=== PATIENT | male | born 1955 | race Caucasian/White ===

== ENCOUNTER 2017-11-23 17:47 | Emergency (ER) | payer BC ==
[2017-11-23 19:24] LABS: BASOPHILS % (AUTO) 0.3 %; EOSINOPHILS # (AUTO) 0.1 10^3/uL (0.0-0.7); EOSINOPHILS % (AUTO) 0.6 %; HGB - HEMOGLOBIN 12.5 g/dL (14.0-18.0); LYMPHOCYTES # (AUTO) 1.2 10^3/uL (1.5-3.5); LYMPHOCYTES % (AUTO) 12.1 %; MEAN CORPUSCULAR HEMOGLOBIN 31.1 pg (27.0-31.0); MEAN CORPUSCULAR HGB CONC 33.6 g/dL (32.0-36.0); MEAN CORPUSCULAR VOLUME 92.3 fL (80.0-94.0); MEAN PLATELET VOLUME 7.2 fL (7.4-11.4); MONOCYTES % (AUTO) 9.8 %; NEUTROPHILS # (AUTO) 7.5 10^3/uL (1.5-6.6); NEUTROPHILS % (AUTO) 77.2 %; PLT - PLATELET COUNT 249 10^3/uL (130-450); RED BLOOD COUNT 4.04 10^6/uL (4.70-6.10); WHITE BLOOD COUNT 9.7 x10^3/uL (4.8-10.8)
[2017-11-23 19:35] LABS: ALBUMIN 4.3 g/dL (3.2-5.5); ALBUMIN/GLOBULIN RATIO 1.4 (1.0-2.2); BILIRUBIN,TOTAL 0.9 mg/dL (0.2-1.0); CALCIUM 9.2 mg/dL (8.5-10.3); CREATININE 0.9 mg/dL (0.6-1.2); TOTAL PROTEIN 7.4 g/dL (6.7-8.2)
--- NOTE | 2017-11-23 19:48 | CT Preliminary Report ---
Exam: CT HEAD W/O IMPRESSION: 1. Negative for acute or focal intracranial abnormality. [facility] SITE ID: [id number]
--- NOTE | 2017-11-23 19:49 | CT Report ---
EXAM: CT HEAD EXAM DATE: 11/23/2017 07:36 PM. CLINICAL HISTORY: R facial droop, x 24 hours. COMPARISON: None. TECHNIQUE: Multiaxial CT images were obtained from the foramen magnum to the vertex. Reformats: Coron al. IV contrast: None. In accordance with CT protocol optimization, one or more of the following dose reduction techniques w ere utilized for this exam: automated exposure control, adjustment of mA and/or KV based on patient s ize, or use of iterative reconstructive technique. FINDINGS: Parenchyma: No intraparenchymal hemorrhage. No evidence of mass, midline shift, or CT findings of inf arction. Degroot-white differentiation is distinct. Extraaxial Spaces: Normal for age. No subdural or epidural collections identified. Ventricles: Normal in size and position. Sinuses and Orbits: Imaged paranasal sinuses, orbits, and mastoids show no significant abnormality. Bones: There are findings of surgery of the frontal and nasal bone. Negative for acute fracture. Other: None. IMPRESSION: 1. Negative for acute or focal intracranial abnormality. [facility] Referring Provider Line: [phone] SITE ID: [id number]
[2017-11-23] MEDS ORDERED: predniSONE 20 MG TABLET PO STA (20:09)
[2017-11-23] MEDS ORDERED: valACYclovir 500 MG TABLET PO STA (20:09)
--- NOTE | 2017-11-23 20:09 | ED Physician Documentation ---
PD HPI FOCAL NEURO - Stated complaint Stated Complaint: R FACE NOT MOVING - Chief complaint Chief Complaint: Heent - History obtained from History obtained from: Patient, Family - History of Present Illness Timing - onset: How many days ago (1) Timing - duration: Days (1) Timing - details: Gradual onset Severity of deficit: Moderate Weakness: Face, Right Numbness: No: Face, Arm, Hand, Leg, Foot, Right, Left Associated symptoms: No: Headache, Nausea / vomiting, Seizure, Syncope, Fall, Head injury, Chest pain, Neck pain, Back pain, Fever Contributing factors: negative: Anticoagulated, Vascular dz, Atrial fibrillation Baseline status: positive: A&OX3, ambulatory, indep Similar symptoms before: 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) Recently seen: Surgery (3 days ago, R foot) Review of Systems Ten Systems: 10 systems reviewed and negative Constitutional: denies: Fever, Chills Ears: denies: Ear pain Nose: denies: Rhinorrhea / runny nose, Congestion Cardiac: denies: Chest pain / pressure Respiratory: denies: Cough GI: denies: Nausea, Vomiting, Diarrhea Skin: denies: Rash Musculoskeletal: denies: Neck pain, Back pain Neurologic: denies: Numbness, Difficulty speaking, Near syncope, Confused, Altered mental status, Headache PD PAST MEDICAL HISTORY - Past Medical History Past Medical History: Yes Cardiovascular: Hypertension, High cholesterol - Past Surgical History Past Surgical History: Yes - Present Medications Home Medications: Ambulatory Orders Medication Instructions Recorded Confirmed Atorvastatin [Lipitor] 10 mg 11/23/17 Benazepril HCl 30 mg 11/23/17 Valacyclovir HCl [Valacyclovir] 1,000 mg PO TID #21 tablet 11/23/17 predniSONE [Deltasone] 10 mg PO [id number] #42 tab 11/23/17 - Allergies Allergies/Adverse Reactions: Allergies Allergy/AdvReac Type Severity Reaction Status Date / Time No Known Drug Allergies Allergy Verified 11/23/17 18:00 - Social History Does the pt smoke?: No Smoking Status: Never smoker Does the pt drink ETOH?: Yes Does the pt have substance abuse?: No Substance Use and Type: Marijuana - Immunizations Immunizations are current?: Yes PD ED PE NORMAL - Vitals Vital signs reviewed: Yes - General General: Alert and oriented X 3, No acute distress, Well developed/nourished - HEENT HEENT: PERRL, Ears normal, Moist mucous membranes, Pharynx benign - Neck Neck: Supple, no meningeal sign - Cardiac Cardiac: RRR, Strong equal pulses - Respiratory Respiratory: No respiratory distress, Clear bilaterally - Abdomen Abdomen: Soft, Non tender, Non distended - Back Back: No spinal TTP - Derm Derm: Warm and dry - Neuro Neuro: Alert and oriented X 3, No sensory deficit, Other (R sided facial asymmetry, forehead moves mildly on that side. + bells phenomenon. ) - Psych Psych: Normal mood, Normal affect NIHSS - Time Time: 18:50 - Level of Consciousness Level of consciousness: (0) Alert, Keenly responsive LOC Questions: (0) Answers both Q's correct LOC Commands: (0) Performs both correctly - Gaze Best Gaze: (0) Normal - Visual Visual: (0) No loss - Facial Palsy Facial Palsy: (2) Partial paralysis - Motor Arms (both separate) Motor Arm (right): (0) No drift Motor Arm (left): (0) No drift - Motor Legs (both separate) Motor Leg (right): (0) No drift Motor Leg (left): (0) No drift - Limb Ataxia Limb Ataxia: (0) Absent - Sensory Sensory: (0) Normal - Best Language Best Language: (0) No aphasia - Dysarthria Dysarthria: (0) Normal - Extinction and Inattention (formally neg Extinction and inattention: (0) No abnormality - Total Score/Results Total Score/Result: 2 Results - Vitals Vitals: Vital Signs - 24 hr 11/23/17 11/23/17 11/23/17 17:54 19:34 20:15 Temperature 36.8 C 36.5 C Heart Rate 86 85 80 Respiratory 18 18 18 Rate Blood Pressure 171/81 H 149/87 H 155/81 H O2 Saturation 96 99 98 Oxygen O2 Source Room air - Labs Labs: Laboratory Tests 11/23/17 11/23/17 19:18 19:18 WBC 9.7 RBC 4.04 L Hgb 12.5 L Hct 37.3 L MCV 92.3 MCH 31.1 H MCHC 33.6 RDW 13.0 Plt Count 249 MPV 7.2 L Neut # 7.5 H Lymph # 1.2 L [place] # 1.0 Eos # 0.1 Baso # 0.0 Absolute Nucleated RBC 0.00 Nucleated RBC % 0.0 Sodium 138 Potassium 3.9 Chloride 105 Carbon Dioxide 26 Anion Gap 7.0 BUN 10 Creatinine 0.9 Estimated GFR (MDRD) 86 L Glucose 113 H Calcium 9.2 Total Bilirubin 0.9 AST 28 ALT 30 Alkaline Phosphatase 71 Total Protein 7.4 Albumin 4.3 Globulin 3.1 Albumin/Globulin Ratio 1.4 Lipase 23 - Rads (name of study) head CT Radiology: Prelim report reviewed, EMP read contemporaneously, See rad report ( normal) PD MEDICAL DECISION MAKING - ED course Complexity details: reviewed results, re-evaluated patient, considered differential, d/w patient ED course: Patient is a 62-year-old male who presents to the emergency department with a right-sided facial droop since yesterday. The forehead did move mildly on examination and therefore there was concern for possible alternate etiologies that the rest of the history and exam was consistent with a Mejia's palsy. There is also positive Mejia's phenomenon that side. Therefore laboratory testing and CT scan are performed to rule out other etiologies and those are normal. We will treat him as a Mejia's palsy and follow-up with his doctor closely. Placed on valacyclovir, prednisone and artificial tears. Patient and family counseled regarding signs and symptoms for which I believe and urgent re- evaluation would be necessary. Patient with good understanding of and agreement to plan and is comfortable going home at this time This document was made in part using voice recognition software. While efforts are made to proofread this document, sound alike and grammatical errors may occur. Departure - Departure Disposition: 01 Home, Self Care Clinical Impression: Mejia palsy Condition: Good Instructions: ED [facility] Follow-Up: Christopher Veronica MD [Primary Care Provider] - Within 1 week Prescriptions: predniSONE [Deltasone] 10 mg PO [id number] #42 tab Valacyclovir HCl [Valacyclovir] 1,000 mg PO TID #21 tablet Comments: You appear to have Mejia's palsy tonight. You should use eyedrops during the day as well as eye lubricant at night to prevent corneal ulcers. You may want to tape her eyelid shut at night to prevent drying. Return if you worsen. Discharge Date/Time: 11/23/17 20:20
[2017-11-23 20:16] VITALS: BP 155/81
== END 2017-11-23 20:20 | disposition home or self-care (01) ==
LOC: ED 17:47
DX: G51.0 Bell's palsy (principal); I10 Essential (primary) hypertension; E78.00 Pure hypercholesterolemia, unspecified
CPT/HCPCS: 36415; 70450; 80053; 83690; 85025; 93005; 99283; A9270; J7512